=== PATIENT | female | born 1985 | race Caucasian/White ===

== ENCOUNTER 2016-10-19 12:29 | Emergency (ER) | payer MEDICAID ==
[~2016-10-19] VITALS: Ht 165.1 cm; Wt 68.9 kg
[~2016-10-19 12:29] MED LIST: ACETAMINOPHEN-1 EAC1 ORAL; NAPROSYN500 M1 ORAL
[2016-10-19 12:38] VITALS: BP 105/72
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
[2016-10-19] MEDS ORDERED: ROBAXIN-750750 MG PO (13:32)
[2016-10-19 13:35] VITALS: BP 110/75
--- NOTE | 2016-10-19 14:03 | Diagnostic Imaging Report ---
Indication: Neck Pain Findings: 3 views of the cervical spine were obtained. There is no acute fracture identified. Alignment is normal. The open-mouth odontoid view shows an intact dens and good alignment of the lateral masses with respect to the body of C2. There is no soft tissue swelling. Impression: Negative cervical spine examination.
== END 2016-10-19 13:44 | disposition home or self-care (01) ==
LOC: EMR 12:53
DX: S13.9XXA Sprain of joints and ligaments of unspecified parts of neck, initial encounter (principal); V43.52XA Car driver injured in collision with other type car in traffic accident, initial encounter; Y92.410 Unspecified street and highway as the place of occurrence of the external cause
CPT/HCPCS: 72040; 99283